=== PATIENT | male | born 1955 | race Two or more races ===

== ENCOUNTER 2018-04-17 12:16 | Emergency (ER) | payer MEDICARE, OTHER ==
[~2018-04-17] VITALS: Ht 177.8 cm; Wt 93.0 kg
[2018-04-17 12:33] VITALS: BP 142/83
[2018-04-17] MEDS ORDERED: HYDROcodone-ACET 5/325MG TAB PO ONE (14:15)
[2018-04-17] MEDS ORDERED: KETOROLAC TROMETH 60MG/2ML VIAL IM ONE (14:15)
== END 2018-04-17 16:03 | disposition home or self-care (01) ==
LOC: ER 12:21
DX: M54.5 Low back pain (principal); E11.9 Type 2 diabetes mellitus without complications
CPT/HCPCS: 72110; 96372; 99284; J1885

== ENCOUNTER 2018-11-09 12:48 | Inpatient (IN) | payer OTHER ==
[~2018-11-09] VITALS: Ht 177.8 cm; Wt 72.0 kg
[2018-11-09] MEDS ORDERED: SODIUM CHLORIDE 0.9% 1,000 ML IV ONE (13:17)
[2018-11-09 14:58] LABS: Basophils # (auto) 0 uL; Basophils % (auto) 0.4 % (0.0-2.0); Eosinophils # (auto) 0.1 uL; Eosinophils % (auto) 1.2 % (0.0-7.0); Hematocrit 40.2 % (41.0-53.0); Hemoglobin 13.8 g/dL (13.5-17.5); Lymphocytes # (auto) 0.8 uL; Lymphocytes % (auto) 10.4 % (10.0-50.0); Mean Corpuscular Hemoglobin 31.7 pg (28.0-32.0); Mean Corpuscular Hgb Conc. 34.3 g/dL (32.0-36.0); Mean Corpuscular Volume 92.5 fL (80.0-100.0); Monocytes # (auto) 0.4 uL; Neutrophils # (auto) 6.4 uL; Platelet Count (auto) 252 10^3/uL (140-450); Red Blood Cells 4.35 10^6/uL (4.5-5.90); Red Cell Distribution Width 13.4 % (11.8-14.3); White Blood Cell 7.8 10^3/uL (4.4-10.8)
[2018-11-09 15:14] LABS: Alanine Aminotransferase 21 U/L (16-61); Albumin 3.8 g/dL (3.4-5.0); Anion Gap 5 (5-15); Aspartate Aminotransferase 16 U/L (15-37); Blood Urea Nitrogen 16 mg/dL (7-18); Carbon Dioxide 26 mmol/L (21-32); Chloride 103 mmol/L (98-107); Glucose 150 mg/dL (74-106); Potassium 3.8 mmol/L (3.5-5.1); Sodium 134 mmol/L (136-145)
[2018-11-09 15:19] LABS: Alkaline Phosphatase 115 U/L (45-117); Bilirubin, Total 0.5 mg/dL (0.2-1.0); GFR African American 118 mL/min; GFR Non-African American 97 mL/min
[2018-11-09 15:30] LABS: Prothrombin Time 10.7 sec (9.27-12.13)
[2018-11-09] MEDS ORDERED: LACTULOSE 20Gm/30ML SOLN PO PRN (16:45)
[2018-11-09] MEDS ORDERED: HYDROcodone-ACET 5/325MG TAB PO PRN (16:45)
[2018-11-09] MEDS ORDERED: PROMETHAZINE HCL 25 MG/ML 1ML IV PRN (16:45)
[2018-11-09] MEDS ORDERED: MORPHINE SULFATE 4 MG/ML SYR/VIAL IV PRN ×2 (16:45)
[2018-11-09] MEDS ORDERED: DEXTROSE (50%) 50ML SYRG IV PRN (16:45)
[2018-11-09] MEDS ORDERED: LORazepam 2MG/ML-1ML VIAL IV PRN (16:45)
[2018-11-09] MEDS ORDERED: LABETALOL HCL 5 MG/ML ML 20ML VIAL IV PRN (16:45)
[2018-11-09] MEDS ORDERED: NITROGLYCERIN 0.4 MG SL TAB SL PRN (16:45)
[2018-11-09] MEDS ORDERED: ACETAMINOPHEN 500 MG TAB PO PRN (16:45)
[2018-11-09 16:48] LABS: Urine Bacteria NONE SEEN /hpf (None Seen); Urine Blood Negative /uL (Negative); Urine WBC <1 /hpf (0 - 3)
[2018-11-09] MEDS: SODIUM CHLORIDE 0.9% 1,000 ML IV SCH (17:00)
[2018-11-09] MEDS: InsuLIN REG 1unit/0.01ml Soln (100units/ml) SC SCH ×2 (17:00→22:00)
[2018-11-09] MEDS: ACCU-CHEK COMFORT CURVE STRIP VI SCH ×2 (18:00→22:00)
[2018-11-09] MEDS: LORazepam 0.5 MG TAB PO PRN ×3 (18:16→21:38)
[2018-11-09] MEDS: TEMAZEPAM 15 MG CAP PO PRN (21:38)
[2018-11-09] MEDS: ATORVASTATIN 20 MG TAB PO SCH (22:15)
[2018-11-09 23:34] LABS: Cholesterol 126 mg/dL (< 200); Triglycerides 133 mg/dL (< 150)
[2018-11-09 23:37] LABS: Creatine Kinase IFCC 120 U/L (39-308); HDL Cholesterol 55 mg/dL (40-59); LDL Cholesterol 52 mg/dL (< 100)
[2018-11-10] MEDS: SODIUM CHLORIDE 0.9% 1,000 ML IV SCH ×2 (05:11→18:35)
[2018-11-10] MEDS: InsuLIN REG 1unit/0.01ml Soln (100units/ml) SC SCH ×4 (07:00→21:43)
[2018-11-10 07:01] LABS: Cholesterol 113 mg/dL (< 200); HDL Cholesterol 57 mg/dL (40-59); LDL Cholesterol 49 mg/dL (< 100); Triglycerides 69 mg/dL (< 150)
[2018-11-10] MEDS: ACCU-CHEK COMFORT CURVE STRIP VI SCH ×4 (07:12→21:36)
[2018-11-10] MEDS ORDERED: METF-370 PO (08:34)
[2018-11-10] MEDS ORDERED: CARB25TA3 PO (08:34)
[2018-11-10] MEDS ORDERED: ATOR20TA PO (08:34)
[2018-11-10] MEDS ORDERED: ENAL2.5T PO (08:34)
[2018-11-10] MEDS ORDERED: ASPI81TA27 PO (08:34)
[2018-11-10 09:00] VITALS: BP 123/68
[2018-11-10] MEDS: ASPirin 81 mg TAB PO SCH (10:18)
[2018-11-10] MEDS: ENOXAPARIN SOD 40 MG/0.4 ML SYRINGE SC SCH (10:18)
[2018-11-10] MEDS: PANTOPRAZOLE 40 MG TAB PO SCH (10:18)
[2018-11-10 10:28] LABS: Urine Amorphous Crystal FEW /hpf (None Seen); Urine Bacteria FEW /hpf (None Seen); Urine Blood Negative /uL (Negative); Urine Mucus FEW (None Seen); Urine WBC <1 /hpf (0 - 3)
[2018-11-10 10:42] LABS: Alcohol, Urine < 3.0 mg/dL (0-5); Amphetamine Screen, Urine NEGATIVE (NEGATIVE); Barbiturate Scree,Urine NEGATIVE (NEGATIVE); Benzodiazephine Screen, Urine NEGATIVE (NEGATIVE); Cannabinoid Screen, Urine NEGATIVE (NEGATIVE); Cocaine Screen, Urine NEGATIVE (NEGATIVE); Opiate Scree,Urine NEGATIVE (NEGATIVE); Phencyclidine Screen, Urine NEGATIVE (NEGATIVE)
[2018-11-10] MEDS ORDERED: ENALAPRIL MALEATE 10 MG TAB PO ONE (11:45)
[2018-11-10] MEDS: CARBIDOPA W LEVODOPA CR 25/100mg TABLET PO SCH ×3 (12:57→21:36)
[2018-11-10 13:00] VITALS: BP 122/72
[2018-11-10 16:52] VITALS: BP 118/72
[2018-11-10] MEDS: ATORVASTATIN 20 MG TAB PO SCH (21:34)
[2018-11-10] MEDS: TEMAZEPAM 15 MG CAP PO PRN (21:43)
[2018-11-10 22:00] VITALS: BP 115/74
[2018-11-11] MEDS ORDERED: ESCI10TA PO (01:03)
[2018-11-11] MEDS ORDERED: PIMA34CA PO (01:03)
[2018-11-11] MEDS: LORazepam 0.5 MG TAB PO PRN ×3 (03:37→21:06)
[2018-11-11] MEDS: TEMAZEPAM 15 MG CAP PO PRN (03:54)
[2018-11-11 04:07] VITALS: BP_SYST 102; BP_SYST 114; BP_SYST 121; BP_DIAS 61; BP_DIAS 73; BP_DIAS 74
[2018-11-11 05:00] VITALS: BP_SYST 102; BP_SYST 114; BP_SYST 121; BP_DIAS 61; BP_DIAS 70; BP_DIAS 74
[2018-11-11] MEDS: CARBIDOPA W LEVODOPA CR 25/100mg TABLET PO SCH ×4 (06:06→21:07)
[2018-11-11] MEDS: SODIUM CHLORIDE 0.9% 1,000 ML IV SCH ×2 (06:08→11:54)
[2018-11-11] MEDS: ACCU-CHEK COMFORT CURVE STRIP VI SCH ×4 (06:08→21:05)
[2018-11-11] MEDS: InsuLIN REG 1unit/0.01ml Soln (100units/ml) SC SCH ×4 (06:14→21:14)
[2018-11-11 09:09] LABS: Amphetamine Screen, Urine NEGATIVE (NEGATIVE); Barbiturate Scree,Urine NEGATIVE (NEGATIVE); Benzodiazephine Screen, Urine NEGATIVE (NEGATIVE); Cannabinoid Screen, Urine NEGATIVE (NEGATIVE); Cocaine Screen, Urine NEGATIVE (NEGATIVE); Opiate Scree,Urine NEGATIVE (NEGATIVE); Phencyclidine Screen, Urine NEGATIVE (NEGATIVE)
[2018-11-11 09:10] VITALS: BP 101/67
[2018-11-11] MEDS: PANTOPRAZOLE 40 MG TAB PO SCH (09:38)
[2018-11-11] MEDS: ENOXAPARIN SOD 40 MG/0.4 ML SYRINGE SC SCH (09:38)
[2018-11-11] MEDS: ASPirin 81 mg TAB PO SCH (09:38)
[2018-11-11] MEDS: ENALAPRIL MALEATE 10 MG TAB PO SCH (09:39)
[2018-11-11] MEDS ORDERED: IOHEXOL 350 MG/ML 100ML IJ ONE (12:47)
[2018-11-11 13:00] VITALS: BP 117/76
[2018-11-11 17:22] VITALS: BP_SYST 120; BP_SYST 127; BP_SYST 134; BP_DIAS 71; BP_DIAS 78; BP_DIAS 79
[2018-11-11 20:41] VITALS: BP 103/61
[2018-11-11] MEDS: ATORVASTATIN 20 MG TAB PO SCH (21:05)
[2018-11-12 05:10] VITALS: BP_SYST 112; BP_SYST 127; BP_SYST 129; BP_DIAS 61; BP_DIAS 76; BP_DIAS 84
[2018-11-12] MEDS: CARBIDOPA W LEVODOPA CR 25/100mg TABLET PO SCH ×2 (06:21→12:00)
[2018-11-12] MEDS: ACCU-CHEK COMFORT CURVE STRIP VI SCH ×2 (06:21→11:36)
[2018-11-12] MEDS: InsuLIN REG 1unit/0.01ml Soln (100units/ml) SC SCH ×2 (06:21→12:36)
[2018-11-12] MEDS: SODIUM CHLORIDE 0.9% 1,000 ML IV SCH (07:08)
[2018-11-12 08:00] VITALS: BP 129/69
[2018-11-12] MEDS: PANTOPRAZOLE 40 MG TAB PO SCH (11:32)
[2018-11-12] MEDS: ASPirin 81 mg TAB PO SCH (11:32)
[2018-11-12] MEDS: ENOXAPARIN SOD 40 MG/0.4 ML SYRINGE SC SCH (11:33)
[2018-11-12] MEDS: ENALAPRIL MALEATE 10 MG TAB PO SCH (11:33)
[2018-11-12 12:08] LABS: Folate (Folic Acid) 23.76 ng/mL (5.38-24)
[2018-11-12] MEDS ORDERED: CARB25TA3 PO (12:52)
[2018-11-12 13:00] VITALS: BP 129/69
== END 2018-11-12 15:15 | disposition home or self-care (01) | DRG 71 ==
LOC: ER 12:48 → EDBD 12:48 → TELE 16:40 → TELE-WESTW 11-10 08:06
PROVIDERS: ADMIT Internal Medicine; ATTEND Family Medicine
DX: G93.41 Metabolic encephalopathy (principal); E87.1 Hypo-osmolality and hyponatremia; I10 Essential (primary) hypertension; G20 Parkinson's disease; E11.9 Type 2 diabetes mellitus without complications; E27.9 Disorder of adrenal gland, unspecified; E78.00 Pure hypercholesterolemia, unspecified; E78.5 Hyperlipidemia, unspecified; I67.2 Cerebral atherosclerosis; R26.9 Unspecified abnormalities of gait and mobility; R00.0 Tachycardia, unspecified; I08.0 Rheumatic disorders of both mitral and aortic valves; W18.39XA Other fall on same level, initial encounter; S00.03XA Contusion of scalp, initial encounter; R79.1 Abnormal coagulation profile; Z83.3 Family history of diabetes mellitus; Y93.89 Activity, other specified; Y92.512 Supermarket, store or market as the place of occurrence of the external cause; Y99.8 Other external cause status; Z79.82 Long term (current) use of aspirin; Z79.899 Other long term (current) drug therapy; Z79.84 Long term (current) use of oral hypoglycemic drugs
CPT/HCPCS: 36415; 70450; 71045; 71275; 80053; 80061; 80307; 81001; 82550; 82607; 82746; 82962; 83036; 84443; 84484; 85025; 85379; 85610; 85652; 85730; 93005; 93306; 93886; 93970; 96361; 96374; G0378; J1815